=== PATIENT | female | born 1955 | race African-American/Black ===

== ENCOUNTER 2017-07-03 12:22 | Emergency (ER) | payer MEDICARE, OTHER ==
[~2017-07-03] VITALS: Ht 160 cm; Wt 99.0 kg
[~2017-07-03 12:22] MED LIST: [UNRECOGNIZED DRUG - OTHER]
[2017-07-03] MEDS ORDERED: HYDROCODONE/ACETAMINOPHEN 5/325MG TABLET PO ONE (15:00)
[2017-07-03 15:28] VITALS: BP 122/85
== END 2017-07-03 16:37 | disposition home or self-care (01) ==
LOC: ER 16:17
DX: K04.7 Periapical abscess without sinus (principal); E05.90 Thyrotoxicosis, unspecified without thyrotoxic crisis or storm; I10 Essential (primary) hypertension; Z88.1 Allergy status to other antibiotic agents
CPT/HCPCS: 99283

== ENCOUNTER 2017-10-04 14:24 | Emergency (ER) | payer MEDICARE, MEDICAID ==
[~2017-10-04] VITALS: Ht 162.6 cm; Wt 89.0 kg
[2017-10-04] MEDS ORDERED: IBUPROFEN 800MG TABLET PO ONE (18:15)
[2017-10-04 18:21] VITALS: BP 132/95
== END 2017-10-04 18:43 | disposition home or self-care (01) ==
LOC: ER 15:49
DX: S60.221A Contusion of right hand, initial encounter (principal); I10 Essential (primary) hypertension; E05.90 Thyrotoxicosis, unspecified without thyrotoxic crisis or storm; Z85.9 Personal history of malignant neoplasm, unspecified; Z90.710 Acquired absence of both cervix and uterus; Z98.890 Other specified postprocedural states; Z88.3 Allergy status to other anti-infective agents; Y08.89XA Assault by other specified means, initial encounter; Y93.89 Activity, other specified; Y92.018 Other place in single-family (private) house as the place of occurrence of the external cause
CPT/HCPCS: 73130; 99284